=== PATIENT | male | born 1995 | race Two or more races ===

== ENCOUNTER 2023-02-27 17:15 | Emergency (ER) | payer OTHER ==
[~2023-02-27] VITALS: Ht 180.3 cm; Wt 149.7 kg
== END 2023-02-27 17:56 | disposition home or self-care (01) ==
LOC: ER 17:15
DX: M94.0 Chondrocostal junction syndrome [Tietze] (principal)

== ENCOUNTER 2024-05-07 20:57 | Emergency (ER) | payer OTHER ==
[~2024-05-07] VITALS: Ht 182.9 cm; Wt 140.6 kg
[2024-05-07] MEDS ORDERED: FAMOTIDINE/PF 20 MG in 0.9 % SODIUM CHLORIDE 8 ML IV PUSH STA (21:25)
[2024-05-07] MEDS ORDERED: METRONIDAZOLE/SODIUM CHLORIDE 500 MG/100 ML PIGGYBACK IV ONE ×2 (21:30)
[2024-05-07] MEDS ORDERED: 0.9 % SODIUM CHLORIDE 1,000 ML IV SCH (21:30)
[2024-05-07] MEDS ORDERED: ONDANSETRON HCL 2 MG/ML VIAL IV ONE (21:30)
[2024-05-07] MEDS ORDERED: DIPHENOXYLATE HCL/ATROPINE 1 UDTAB TABLET PO ONE (21:30)
[2024-05-07] MEDS ORDERED: ONDANSETRON HCL 2 MG/ML VIAL ONE (21:30)
[2024-05-07] MEDS ORDERED: FAMOtidine 200mg/20ml VIAL ONE (21:30)
[2024-05-07 21:51] LABS: HEMATOCRIT 40.9 % (39.0-48.0); HEMOGLOBIN 13.9 g/dL (13-16.00); MEAN CELL VOLUME 88.8 fL (80.0-100.00); MEAN CORPUSCULAR HEMOGLOBIN 30.1 pg (27.00-32.0); MEAN CORPUSCULAR HGB CONC 33.9 g/dl (32.0-36.0); PLATELET COUNT 299 K/uL (150-450); RED CELL DISTRIBUTION WIDTH 13.4 % (11.5-14.5)
[2024-05-07 22:12] LABS: ALBUMIN 3.6 gm/dL (3.4-5.0); BILIRUBIN TOTAL 0.81 mg/dL (0.3-1.2); CALCIUM 8.9 mg/dL (8.5-10.1); CREATININE SERUM 1.01 mg/dL (0.70-1.30); GFR 87.33; GLOBULINA 4.3 G/DL (2.4-3.5); POTASSIUM 3.73 mEq/L (3.5-5.1); TOTAL PROTEIN 7.9 gm/dL (6.4-8.2)
[2024-05-07] MEDS ORDERED: ACETAMINOPHEN 500 MG GEL..CAP PO ONE ×2 (23:17→23:30)
[2024-05-07] MEDS ORDERED: LEVSIN/SL0.125 MG SL (23:43)
[2024-05-07] MEDS ORDERED: METRONIDAZOLE500 MG PO (23:43)
[2024-05-07] MEDS ORDERED: PEPCID AC20 MG PO (23:43)
[2024-05-07] MEDS ORDERED: ONDANSETRON ODT8 MG PO (23:43)
[2024-05-07] MEDS ORDERED: METOCLOPRAMIDE HCL 10 MG in DEXTROSE 5 % IN WATER 50 ML IV ONE (23:45)
[2024-05-07] MEDS ORDERED: METOCLOPRAMIDE HCL 5 MG/ML VIAL ONE (23:53)
== END 2024-05-08 00:28 | disposition home or self-care (01) ==
LOC: ER 20:58
PROVIDERS: General Practice
DX: K52.89 Other specified noninfective gastroenteritis and colitis (principal); R11.2 Nausea with vomiting, unspecified; Z20.822 Contact with and (suspected) exposure to COVID-19
CPT/HCPCS: 36415; 96365; 96366; 99282; J2405; J3490; J7030

== ENCOUNTER 2025-01-09 21:59 | Emergency (ER) | payer OTHER ==
[~2025-01-09] VITALS: Ht 182.9 cm; Wt 158.8 kg
[~2025-01-09 21:59] MED LIST: LEVSIN/SL0.125 MG SL; METRONIDAZOLE500 MG PO; ONDANSETRON ODT8 MG PO; PEPCID AC20 MG PO
[2025-01-09] MEDS ORDERED: COZAAR50 MG (22:08)
[2025-01-09] MEDS ORDERED: KETOROLAC TROMETHAMINE 60 MG VIAL IM STA (23:01)
[2025-01-09] MEDS ORDERED: KETOROLAC TROMETHAMINE 60 MG VIAL IM ONE (23:12)
== END 2025-01-09 23:55 | disposition home or self-care (01) ==
LOC: ER 22:02
DX: R53.81 Other malaise (principal); G44.209 Tension-type headache, unspecified, not intractable